=== PATIENT | male | born 1995 | race Caucasian/White ===

== ENCOUNTER 2016-06-04 21:27 | Emergency (ER) | payer MEDICAID ==
[2016-06-04 22:47] VITALS: BP 150/96
--- NOTE | 2016-06-05 07:46 | ER ---
History was taken from the patient. CHIEF COMPLAINT: Sudden onset of difficulty swallowing with some anxiety earlier today. HISTORY OF PRESENT ILLNESS: The patient does have a history of anxiety. 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 States that he has not had alcohol in approximately 5 months and that the Lexapro works well for him. He does not have any suicidal or homicidal ideation. He does not use any street drugs. Today, he was drinking coffee after a meeting in [place], developed a feeling of fullness of his tongue and throat. He states that he never had problems with his voice, but he did have some difficulty with swallowing, but there was no drooling or loss of the liquid that he drank. No fluids came out through his nose. With this, he had associated some numbness and tingling of the feet and some anxiety. Denies any headache, fever, chills, rash, cough, wheeze, abdominal pain, nausea, vomiting, diarrhea, constipation, back pain, joint pain, urinary issues, or headaches. ALLERGIES: HE HAS NO KNOWN DRUG ALLERGIES, BUT HE DOES HAVE SOME FOOD ALLERGIES SUCH BLACKBERRIES. CURRENT MEDICATIONS: Include Lexapro 10 mg p.o. daily. PHYSICAL EXAMINATION: VITAL SIGNS: Vital signs upon admission show a blood pressure of 150/96, pulse is 65, and oxygen saturations 100% on room air. GENERAL: A well-developed, well-nourished male in no acute distress with a normal voice. No drooling. No stridor. No hoarseness. HEENT: Head and neck are normocephalic and atraumatic. Eyes show EOMI, PERRLA. Conjunctivae and lids reveal no swelling, erythema, or discharge. There is no icterus. ENT shows normal tongue. Mallampati 1. Nasal membranes and nasal mucosa are not edematous or erythematous. Lips, tongue, and gums appear healthy with good dentition. NECK: Supple. Symmetric. Trachea is midline. There are no masses. Normal thyroid. LUNGS: Clear. HEART: Shows regular rate and rhythm. No murmurs, rubs, or gallops. No S3, no S4. ABDOMEN: Benign, soft, and nontender. No organomegaly. There is an old surgical scar in his lower midline. NEUROLOGIC: Cranial nerves 2 through 12 are intact. Mental status is normal. He has no localized deficits. PSYCHIATRIC: Judgment and insight are good. His memory is good. He is oriented x3 and his mood is normal. ASSESSMENT: 1. Allergic reaction. 2. History of elevated blood pressure. 3. Anxiety and depression. PLAN: It is unclear what he may have come in contact with to cause an allergic-type reaction. The patient does have an EpiPen at around the house that was prescribed last year by another physician in the event that he developed a food allergy. He was also instructed to use Benadryl with [id number] Zantac on a p.r.n. basis should he get this type of feeling again. Review of his note shows 3 of his last 4 blood pressures were borderline elevated in the 135 to 140 range systolically. He has had a normal thyroid done about a year ago, but no other labs. I asked the patient to return fasting tomorrow, get a baseline cholesterol, a CBC, a CMP, and a UA. If there are any signs of end-organ damage from blood pressure such as proteinuria or elevated creatinine, he will need to be started on a hypertensive med. I told the patient to keep an eye on his blood pressure. He may want to have the clinic nurse check his blood pressure every 3 to 4 months, and if it remains elevated, again he may need to start therapy even if there are no signs of end-organ damage. JUAN DIEGO /[id number]
== END 2016-06-04 22:32 | disposition home or self-care (01) ==
LOC: LB.ED 21:27
DX: F41.8 Other specified anxiety disorders (principal); T78.40XA Allergy, unspecified, initial encounter; Z91.018 Allergy to other foods; Z79.899 Other long term (current) drug therapy
CPT/HCPCS: 99282; 99283